=== PATIENT | female | born 1950 | race Two or more races ===

== ENCOUNTER → 2023-12-20 09:05 | Outpatient (REF) | payer OTHER, SELFPAY | LOC: DHCBS HW 09:05 | PROVIDERS: ATTENDING PHYSICIAN Internal Medicine; FAMILY PHYSICIAN Internal Medicine | DX: R07.9 Chest pain, unspecified (principal); I25.10 Atherosclerotic heart disease of native coronary artery without angina pectoris; I65.23 Occlusion and stenosis of bilateral carotid arteries; I48.0 Paroxysmal atrial fibrillation; I34.0 Nonrheumatic mitral (valve) insufficiency | CPT/HCPCS: 93306 ==

== ENCOUNTER → 2023-12-23 07:20 | Outpatient (REF) | payer OTHER, SELFPAY | LOC: DHCBC/DCA 07:20 | PROVIDERS: ATTENDING PHYSICIAN Internal Medicine; FAMILY PHYSICIAN Internal Medicine | DX: R07.9 Chest pain, unspecified (principal); I25.10 Atherosclerotic heart disease of native coronary artery without angina pectoris; I65.23 Occlusion and stenosis of bilateral carotid arteries; I48.0 Paroxysmal atrial fibrillation; I34.0 Nonrheumatic mitral (valve) insufficiency | CPT/HCPCS: 78452; 93017; A9500; J2785 ==

== ENCOUNTER → 2024-02-16 12:49 | Outpatient (REF) | payer OTHER, SELFPAY | LOC: RAD 12:49 | PROVIDERS: ATTENDING PHYSICIAN Surgery Vascular Surgery; FAMILY PHYSICIAN Internal Medicine | DX: I65.23 Occlusion and stenosis of bilateral carotid arteries (principal) | CPT/HCPCS: 93880 ==

== ENCOUNTER 2024-12-26 14:40 | Emergency (ER) | payer OTHER, SELFPAY ==
[2024-12-26 14:42] VITALS: BP 131/75
[2024-12-26 14:57] LABS: % Basophils 0.9 % (0-2); % Immature Granulocytes 0.2 % (0-0.5); % Lymphocytes 30.3 % (20.5-51.1); % Monocytes 9.2 % (1.7-9.3); % Neutrophils 56.4 % (42.2-75.2); Absolute Basophils 0.1 10^3/uL (0-0.2); Absolute Eosinophils 0.2 10^3/uL (0-0.7); Absolute Lymphocytes 1.7 10^3/uL (1.2-3.4); Absolute Monocytes 0.5 10^3/uL (0.1-0.6); Absolute Neutrophils 3.2 10^3/uL (1.4-6.5); Hemoglobin 13.3 g/dL (12.0-16.0); Mean Corpuscular Hgb 30.7 pg (27.0-31.0); Mean Corpuscular Volume 87.8 fL (81.0-99.0); Mean Platelet Volume 9.5 fL (7.4-10.4); Nucleated Red Blood Cells % 0 %; Platelet Count 143 10^3/uL (130-400); Red Blood Cell Count 4.33 10^6/uL (4.20-5.40); Red Cell Dist. Width 12.7 % (11.5-14.5); White Blood Cell Count 5.7 10^3/uL (4.8-10.8)
[2024-12-26 15:25] LABS: ALT (SGPT) 30 U/L (0-35); AST (SGOT) 36 U/L (14-36); Albumin 4.4 g/dl (3.5-5.0); Alkaline Phosphatase 71 U/L (38-126); Blood Urea Nitrogen 17 mg/dl (7-17); Calcium 9.7 mg/dl (8.4-10.2); Carbon Dioxide 24 mmol/L (22-30); Chloride 107 mmol/L (98-107); Glucose 115 mg/dl (70-99); Lipase 281 U/L (23-300); Potassium 4.7 mmol/L (3.5-5.1); Sodium 140 mmol/L (135-145); Total Bilirubin 0.8 mg/dl (0.2-1.3); Total Protein 7.2 g/dl (6.3-8.2); eGFR 58.75
[2024-12-26] MEDS: OMNIPAQUE 50 ML PO (15:56)
--- NOTE | 2024-12-26 17:11 | ED.GENMED ---
History of Present Illness
General
Chief Complaint: Abdominal Pain
Source: patient
Exam Limitations: none
Time Seen by Provider: 12/26/24 15:47
Nursing documentation reviewed up to this point in time: agreed with
History of Present Illness
History of Present Illness:
Patient recently completed 7-day course of Levaquin and Flagyl secondary to possible diverticulitis, presents to ED secondary to worsening lower abdominal pain starting this morning. Abdominal pain described as crampy, nonradiating, without any
alleviating or exacerbating factors. Denies trauma. Denies back pain. Denies difficulty with urination. Patient has been able to have normal bowel movements. Denies recent change in diet. Denies sick contact. Denies recent travel.
Past History
Past History
ED Past Medical History: Arrthythmia (A-fib), CAD, Hypercholesterolemia and Other (Neuropathy both feet)
ED Past Surgical History: Bowel resection (colon Ca followed q 6 mos at [facility]) and Cardiac (Pacemaker)
Social History
Tobacco: Non-smoker
Alcohol: None
Personal: Single
Living: alone
Review of Systems
Review of Systems
Allergies reviewed?: Yes
All Other Systems: ROS reviewed and negative except as documented in HPI and ROS
Constitutional: Reports no symptoms; Denies fever
EENT: Reports no symptoms
Respiratory: Reports no symptoms
Cardiac: Reports no symptoms
ABD/GI: Reports abdominal pain; Denies vomiting or diarrhea
Musculoskeletal: Reports no symptoms
Skin: Reports no symptoms
Neurological: Reports no symptoms
Phy Exam
Physical Exam
Physical Exam:
Physical Exam
General: no apparent distress, not acutely ill. afebrile.
Head: nc/at. eomi
Neck: supple. normal range of motion.
Abdomen: normal bowel sounds. mild RLQ tenderness to palpation, without distention.
Neuro: alert and oriented x 3. no focal neurological deficits
Skin: no rash
Psychiatric: well kept. interactive and cooperative
Extremities: no edema. no calf tenderness.
Course
Orders/Labs/Results
Orders:
Orders
12/26/24 14:48
Complete Blood Count/With Diff Urgent
Comprehensive Metabolic Panel Urgent
Lipase Urgent
12/26/24 15:52
CT Abd/pel W Iv And Oral Contr Urgent
Comment:
Reason For Exam: lower abdominal pain
Iohexol [Omnipaque] See Protocol PO NOW STA
Abnormal Lab Results
12/26/24
14:48
Glucose 115 H mg/dl
(70-99)
12/26/24 14:48
12/26/24 14:48
Vital Signs
Initial and Last Documented VS:
Initial Vital Signs
Temp Pulse Resp BP Pulse Ox
98.4 F 79 18 131/75 98
12/26/24 14:42 12/26/24 14:42 12/26/24 14:42 12/26/24 14:42 12/26/24 14:42
Last Documented Vital Signs
Temp Pulse Resp BP Pulse Ox
97.8 F 76 18 130/88 98
12/26/24 19:18 12/26/24 19:18 12/26/24 19:18 12/26/24 19:18 12/26/24 19:18
MDM/Problems Addressed
MDM/Problems Addressed:
CT report reviewed and discussed with patient. Blood work within normal limits. As such, patient will be discharged home in stable condition, with recommendation to follow-up with her PCP for reevaluation, including potential empiric treatment
with course of antibiotics, if her symptoms persist. Advised to return to ED with worsening symptoms, i.e. fever/worsening pain/vomiting.
*Critical Care Note
Total Time (30-74mins, 75-104mins- exclusive of procedures): Not Applicable
ED Attending Note
-
Portions of this chart may have been created with voice recognition software.� Occasional wrong word or��sound alike� substitutions may have occurred due to the inherent limitations of voice recognition software.
Discharge Plan
Departure
Patient Disposition: Home (Routine Discharge)
Date of Disposition: 12/26/24
Time of Disposition: 19:09
Patient with high blood pressure during this ER visit?: Yes
Discharge Problem:
Abdominal pain
Instructions: Abdominal Pain
Prescriptions:
No Action
atorvastatin 80 MG tablet
80 mg PO HS
metoprolol tartrate 50 MG tablet
50 mg PO QPM
benazepril 20 MG tablet
20 mg PO DAILY
magnesium oxide 500 MG capsule
500 mg PO QPM
dulaglutide [Trulicity] 1.5 MG/0.5 ML pen injector
1.5 mg SQ WEEKLY
Patient Comments:
Ascorbic Acid/Ascorbate Sodium [Vitamin C 500 Mg Tablet Chew] 500 MG Tab.Chew
500 mg PO DAILY
metoprolol tartrate 50 MG tablet
25 mg PO PRN PRN (Reason: palpitations, tachy)
nitroglycerin 0.4 MG tablet, sublingual
0.4 mg sublingual [id number] PRN (Reason: chest pain)
cholecalciferol (vitamin D3) 250 MCG capsule
10,000 unit PO DAILY
biotin 2,500 MCG capsule
2,500 mcg PO DAILY
yrvfkoig-gxd-tvocf acid-lutein 1 EACH tablet,chewable
2 tab.chew PO DAILY
Iron 65 MG Tab
65 mg PO SUTUTH
mupirocin 1 APPLIC ointment
1 applic topical BID Qty: 1 0RF
Patient Comments:
pt performed BID for 3 days prior to OR date , last performed 11/29/21 PM.
scopolamine base 1 PATCH patch 3 day
1 patch transdermal Q72H Qty: 2 0RF
Patient Comments:
pt placed by self, behind R ear on 11/30/21 0500.
Rx Instructions:
apply am of surgery
sennosides [senna] 1 TABLET tablet
2 tab PO BID 0RF
famotidine 40 MG tablet
40 mg PO BID 0RF
magnesium hydroxide 30 ML suspension
30 ml PO DAILYPRN PRN (Reason: constipation) 0RF
docusate sodium 100 MG capsule
100 mg PO BID 0RF
warfarin [Jantoven] 2 MG tablet
4 mg PO TONIGHT AT 1800 Qty: 60 0RF
Rx Instructions:
2 TABS TONIGHT (4MG), THEN 1 TAB NIGHTLY UNTIL ADVISED AFTER INR 12/03
pregabalin 75 MG capsule
75 mg PO BID Qty: 15 0RF
Rx Instructions:
BID X 5 DAYS, THEN DAILY
ondansetron 4 MG tablet,disintegrating
4 mg PO Q6H PRN (Reason: N/V) Qty: 20 0RF
diazepam 5 MG tablet
5 mg PO HS Qty: 5 0RF
tramadol 50 MG tablet
50 mg PO Q6HPRN PRN (Reason: moderate-severe pain) Qty: 30 0RF
Rx Instructions:
1 tab moderate pain or 2 if pain severe
Dx joint replacement
ongoing therapy
rivaroxaban [Xarelto] 20 MG tablet
1 tab PO QPM Qty: 0 0RF
Rx Instructions:
RESUME ON OR AFTER 12/14 IF INR <2
icosapent ethyl [Vascepa] 1 GM capsule
1 cap PO DAILY Qty: 0 0RF
Rx Instructions:
resume in 2 weeks
Referrals:
Jeni Benjamin MD [Family Provider] -
Activity Restrictions/Additional Instructions:
As discussed, please follow-up with your primary care physician for reevaluation. Please return to ED with worsening symptoms, i.e. fever/worsening pain/vomiting.
Interventions
Interventions:
*Risk Screen - Suicide Last Done: 12/26/24 14:42
*General Assessment Last Done: 12/26/24 14:42
*Neglect/Abuse Screening Last Done: 12/26/24 14:42
*ED- Fall Risk Assessment Last Done: 12/26/24 14:42
*ED COVID-19 Vaccine History Last Done: 12/26/24 14:42
*Nursing Disposition Last Done: 12/26/24 19:23
CG-Euwleg-Xavilebeya Assessment Last Done: 12/26/24 16:11
Discharge Date and Time
Discharge Date/Time: 12/26/24 19:23
Print Language: GEORGIAN
[2024-12-26 19:18] VITALS: BP 130/88
== END 2024-12-26 19:23 | disposition home or self-care (01) ==
LOC: EMR 14:40
PROVIDERS: Emergency Medicine; EMERGENCY PHYSICIAN Emergency Medicine; FAMILY PHYSICIAN Internal Medicine
DX: R10.30 Lower abdominal pain, unspecified (principal); I48.91 Unspecified atrial fibrillation; I25.10 Atherosclerotic heart disease of native coronary artery without angina pectoris; E78.00 Pure hypercholesterolemia, unspecified; G62.9 Polyneuropathy, unspecified; Z85.038 Personal history of other malignant neoplasm of large intestine; Z95.0 Presence of cardiac pacemaker
CPT/HCPCS: 99284; 74177; 80053; 83690; 85025; Q9967

== ENCOUNTER → 2025-02-22 13:32 | Outpatient (REF) | payer OTHER, SELFPAY | LOC: DHVS 13:32 | PROVIDERS: ATTENDING PHYSICIAN Registered Nurse; FAMILY PHYSICIAN Internal Medicine | DX: I65.23 Occlusion and stenosis of bilateral carotid arteries (principal) | CPT/HCPCS: 93880 ==

== ENCOUNTER → 2025-03-28 14:19 | Outpatient (REF) | payer OTHER, SELFPAY | LOC: RAD 14:19 | PROVIDERS: ATTENDING PHYSICIAN Internal Medicine | DX: E04.1 Nontoxic single thyroid nodule (principal) | CPT/HCPCS: 76536 ==

== ENCOUNTER → 2025-06-05 10:04 | Outpatient (REF) | payer OTHER, SELFPAY | LOC: RAD 10:04 | PROVIDERS: ATTENDING PHYSICIAN Physician Assistant; FAMILY PHYSICIAN Internal Medicine | DX: C18.2 Malignant neoplasm of ascending colon (principal) | CPT/HCPCS: 71260; Q9967 ==